=== PATIENT | female | born 1980 | race Caucasian/White ===

== ENCOUNTER 2024-12-31 21:48 | Emergency (ER) | payer OTHER, SELFPAY ==
[2024-12-31 21:50] VITALS: BMI 27.4
[2024-12-31 23:09] VITALS: BP 115/78; PULSE 71; RESP 16; TEMP 36.9; O2SAT 98
--- NOTE | 2024-12-31 23:16 | XR_ITS ---
Examination: Knee, left, 3 views Technique: Knee AP, lateral, oblique 3 views Date and time of exam: January 10, 2025 1140 hrs. Indications: Injured knee today, knee pain. Findings: No fracture or dislocation No opaque foreign body Impression: No fracture or dislocation
--- NOTE | 2024-12-31 23:16 | PD.EDFALL ---
ED Fall Injury RME/HPI General Chief Complaint: Fall Stated Complaint: FALL AT WORK, LEFT KNEE INJURY Time Seen by Provider: 12/31/24 23:15 Arrival date/time: 12/31/24 21:48 44 year old female present to emergency room with c/o of left knee injury while at work. uptodate with tetanus LOCATION: Knee SEVERITY: Symptoms are described as being severe with limitations on activities of daily living QUALITY: Symptoms are described as being dull or achy CONTEXT: GLF at work DURATION/TIMING: The symptoms started approximately earlier today and have been constant this then. ASSOCIATED SYMPTOMS: The patient is unable to identify any other associated symptoms. MODIFYING FACTORS: The patient is unable to identify any alleviating or aggravating symptoms. PERTINENT ROS: no fevers, no headache, no neck or chest pain, no unexplained nausea or vomiting, no focal neurological deficits REVIEW OF SYSTEMS: See History of Present Illness - with the exception of those mentioned in the history of present illness, all other systems reviewed and reported as negative GENERAL: In general the patient is awake, interactive, in an emergency department gurney. HEAD/EYES/EARS/NOSE/THROAT: normo-cephalic, atraumatic, mucus membranes are moist, anicteric, palpebral conjunctiva is pink, trachea is midline. CARDIOVASCULAR: regular rate and regular rhythm, no murmurs, heart sounds are not distant, strong pulses in all four extremities that are equal and symmetric bilateral upper and lower extremities, normal capillary refill. CHEST/PULMONARY: normal chest rise and fall, good air movement, clear to auscultation bilaterally, normal inspiratory to expiratory ratios without evidence of respiratory distress. NECK: No midline/Paraspinal tenderness, no step off ROM/Strenght intact No Kernig and bruzinski sign. No trauma ABDOMEN: soft, not tender, no masses appreciated BACK: normal range of motion without pain. NEUROLOGICAL: cranio-facial features are symmetric, moves all four extremities equally without obvious limitations or weakness. EXTREMITY: + left knee abrasion , no tenderness to palpation over the long bones or large joints of the bilateral upper extremities, no joint swelling, no unilateral leg swelling and no peripheral edema. SKIN: warm, dry, well-perfused, no jaundice, no rash, no telangiectasias or petechia. PSYCH: calm, cooperative, no evidence of psychosis or agitation Related Data Previous Rx's ?Medication ?Instructions ?Recorded meloxicam 7.5 mg tablet 7.5 mg PO BID #45 tabs 09/21/23 Allergies Allergy/AdvReac Type Severity Reaction Status Date / Time dicloxacillin Allergy Unknown DIFF Verified 12/31/24 21:49 BREATHING doxycycline Allergy Verified 12/31/24 21:49 Course Course Course Narrative: xray to rule out fracture vs contusion follow up with workmen comp for restriction and modification take tylenol or motrin as need clean wound and keep area dry Quality Measures none Orders Category Date Time Status XR knee LT 3V Stat Exams 12/31/24 23:16 Completed Vital Signs Vital signs: Vital Signs Temperature 98.5 F 12/31/24 23:09 Pulse Rate 71 12/31/24 23:09 Respiratory Rate 16 12/31/24 23:09 Blood Pressure 115/78 12/31/24 23:09 Pulse Oximetry (%) 98 12/31/24 23:09 Oxygen Delivery Method Room Air 12/31/24 23:09 Fall Patient data External records reviewed:: [facility] previous records Clinical information provided by:: patient Social determinants that could affect healthcare access:: none Patient has the following chronic illnesses:: n/a How is presenting disease/condition affected by chronic disease/condition?: no chronic disease Evaluation data The following diagnostics were reviewed and interpreted by me:: radiology exam(s) Lab and/or radiology exams considered but not ordered:: n/a Interpretation Summary: xray: Findings: No fracture or dislocation No opaque foreign body Impression: No fracture or dislocation Medications / Prescriptions Medications or Prescriptions considered but not ordered:: n/a Medication administrations:: n/a Consultations Consultation(s) initiated? (list below): No Diagnosis Fall Differential Diagnosis: other (knee fracture vs strain vs abrasion ) Most likely diagnosis given after review of the tests above:: knee abrasion Admission Indicated Admission indicated?: not indicated Admission Request Was there a request for admission?: No Disposition Plan Disposition Plan: Discharge Discharge Attestation Discharge Attestation: The patient and all family members were given an opportunity to ask questions and understood the discharge instructions. Discharge instructions specifically effects, indications for sooner follow up or return to the emergency department, and the expected course of current diagnosis. Patient condition: Stable Discharge Plan Plan Patient Disposition: HOME (Self Care) Health Concerns: Follow up with workmen comp as directed Return to ED if symptoms worsen Knee xray results Findings: No fracture or dislocation No opaque foreign body Impression: No fracture or dislocation Prescriptions/Referrals Prescriptions/Med Rec: No Action meloxicam 7.5 mg tablet 7.5 mg PO BID Qty: 45 3RF Referrals: No Primary/Family,Physician [Primary Care Provider] - In 1 week Problem List Clinical Impression: Abrasion of knee, left Patient/Caregiver Discharge Instructions Education Materials: ED Abrasions Print Language: Burundian Stand Alone Forms: [facility]ie Award Info., Patient Portal Info Letter
== END 2025-01-01 01:24 | disposition home or self-care (01) ==
PROVIDERS: Emergency Provider Emergency Medicine
DX: S80.212A Abrasion, left knee, initial encounter (principal); X58.XXXA Exposure to other specified factors, initial encounter; Y99.0 Civilian activity done for income or pay
CPT/HCPCS: 73562; 99283

== ENCOUNTER 2025-02-06 18:15 | Emergency (ER) | payer MEDICAID, SELFPAY ==
[2025-02-06 18:18] VITALS: BP 121/79; PULSE 102; RESP 18; TEMP 37.2; O2SAT 96
[2025-02-06 18:51] VITALS: BMI 28.3
[2025-02-06 19:14] VITALS: BP 109/71; PULSE 96; RESP 18; TEMP 36.9; O2SAT 96
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
[2025-02-06] MEDS: HYDROcodone/APAP 5/325 TABLET 1 TAB PO (20:07)
[2025-02-06 22:12] VITALS: BP 136/74; PULSE 70; RESP 18; O2SAT 98
== END 2025-02-06 22:14 | disposition home or self-care (01) ==
PROVIDERS: Emergency Provider Emergency Medicine
DX: S02.831A Fracture of medial orbital wall, right side, initial encounter for closed fracture (principal); S80.812A Abrasion, left lower leg, initial encounter; S09.90XA Unspecified injury of head, initial encounter; S19.9XXA Unspecified injury of neck, initial encounter; S29.9XXA Unspecified injury of thorax, initial encounter; R07.9 Chest pain, unspecified; V89.2XXA Person injured in unspecified motor-vehicle accident, traffic, initial encounter
CPT/HCPCS: 70450; 70486; 71250; 72125; 72128; 99284; A9270

== ENCOUNTER 2025-06-14 10:15 | Outpatient (RCR) | payer MEDICAID, SELFPAY ==
--- NOTE | 2025-06-14 10:52 | PTNOTE_ITS ---
PT OP Initial Eval Patient Information Outpatient Physical Therapy Treatment Date: 06/14/25 Visit Reasons: back pain Medical Diagnosis: M54.9 M54.6 Treatment Dx #1: mid back pain Treatment Dx #2: upper back pain Start of Care: 06/14/25 Date of Onset: 5 yrs ago Smoking Status Smoking Status: Former smoker Initial Assessment Subjective: Pt is 44 yr old female who reports back pain she attributes to large breast size pulling forward and contributing to hunched posture. This causes pain with sitting and HH chores and it's difficult to find a comfortable posture to sleep. PMH: DM, hysterectomy Imaging: CT of T/S in EMR Pt goal: to get rid of the pain Objective: TTP: mid/high of T1-T10 paraspinals T/S AROM: Flexion: full with pain Extension: 50% of full with pain Rotation: 75% of full Sitting posture: thoracic kyphosis which she can correct for short periods Assessment: Pt presents with mid and upper back pain and she sits with thoracic kyphosis which pt can correct but she fatigues quickly. Breasts are likely pulling her fwd into hunched position and she has vertebral osteophytes on CT scan that are likely contributing to pain. Pt requires skilled therapy to meet goals and has fair rehab potential. Short Term and Intermediate Goals 1. Ind with HEP 2. Sit with neutral T/S posture x3' 3. Decreased TTP of T/S paraspinals from mod to min Treatment Plan ? 1. Manual therapy ? 2. Therex ? 3. Modalities as indicated, moist heat, ice, estim Frequency and Duration: 1-2x a week for 6 visits plus the evaluation Certification Dates: 06/14/25 to 09/12/25 Procedure Charges OP PT Eval Mod Complex 30 minutes: Yes
== END 2025-06-24 23:59 | disposition home or self-care (01) ==
LOC: CPTX 10:15
PROVIDERS: PCP Physician Assistant Medical; Referring Provider Physician Assistant Medical; Visit Provider Physician Assistant Medical
DX: M54.6 Pain in thoracic spine (principal); M40.294 Other kyphosis, thoracic region
CPT/HCPCS: 97162

== ENCOUNTER 2025-07-10 13:30 | Outpatient (RCR) | payer MEDICAID, SELFPAY ==
--- NOTE | 2025-07-04 10:53 | PT.ODAYNRPT ---
PT Outpatient Daily Note OP Daily Note Outpatient Physical Therapy Treatment Date: 07/04/25 Visit Reasons: back pain Subjective: Pt arrived with complaints of tightness to T/S. Objective: See F/S for therex Assessment: Pt tolerated exercises well with no increase in discomfort to T/S; required minimal cues to correct posture with exercises. Plan: Continue with POC. Length of Time (minutes) of Treatment: 15 Minutes Procedure Charges Therapeutic Exercise 15 minutes: Yes
--- NOTE | 2025-07-10 13:29 | PT.ODAYNRPT ---
PT Outpatient Daily Note OP Daily Note Outpatient Physical Therapy Treatment Date: 07/10/25 Visit Reasons: back pain Subjective: Pt c/o of minimal upper back pain Objective: See F/S for therex performed Assessment: Tolerated therex well with no increase in pain; minimal verbal cues required to correct posture and avoid shrugging shoulders during exercises. Plan: Continue with POC Length of Time (minutes) of Treatment: 30 Minutes Procedure Charges Therapeutic Exercise 30 minutes: Yes
== END 2025-07-24 23:59 | disposition home or self-care (01) ==
LOC: CPTX 13:30
PROVIDERS: PCP Physician Assistant Medical; Referring Provider Physician Assistant Medical; Visit Provider Physician Assistant Medical
DX: M54.6 Pain in thoracic spine (principal); E11.9 Type 2 diabetes mellitus without complications
CPT/HCPCS: 97110